=== PATIENT | female | born 1980 | race Hispanic/Latino ===

== ENCOUNTER 2017-12-15 17:27 | Emergency (ER) | payer OTHER ==
[~2017-12-15] VITALS: Ht 152.4 cm; Wt 70.3 kg
[~2017-12-15 17:27] MED LIST: FLEXERIL10 MG PO; MOTRIN800 MG PO
[2017-12-15 17:56] LABS: ABSOLUTE BASOPHIL COUNT 0 /CUMM (0.0-0.2); ABSOLUTE EOSINOPHIL COUNT 0.4 /CUMM (0.0-0.7); ABSOLUTE GRANULOCYTE CT 3.8 /CUMM (1.4-6.5); ABSOLUTE LYMPH COUNT 1.1 /CUMM (1.2-3.4); ABSOLUTE MONOCYTE COUNT 0.3 /CUMM (0.10-0.60); BASOPHIL % 0.4 % (0.0-2.0); EOSINOPHIL % 6.2 % (0-5); GRANULOCYTE % 67.4 % (42.2-75.2); HEMATOCRIT 40.5 % (37-47); MEAN CORPUSCULAR HGB 31.8 PG (27.0-31.0); MEAN CORPUSCULAR HGB CONC 33.9 G/DL (33.0-37.0); MEAN CORPUSCULAR VOLUME 93.8 FL (81.0-99.0); PLATELET COUNT 300 /CUMM (130-400); RBC DISTRIBUTION WIDTH 12.7 % (11.5-14.5); RED BLOOD CELL CT 4.32 /CUMM (4.20-5.40); WHITE BLOOD CELL COUNT 5.7 /CUMM (4.8-10.8)
--- NOTE | 2017-12-15 18:26 | ED CARDIAC/CP/PALPITATIONS ---
History of Present Illness General Chief Complaint: Chest Pain Stated Complaint: CP Source: patient Exam Limitations: no limitations Vital Signs & Intake/Output Vital Signs & Intake/Output Vital Signs Date Time Temp Pulse Resp B/P B/P Pulse O2 O2 Flow FiO2 Mean Ox Delivery Rate 12/159 98.2 70 18 127/68 100 Room Air 12/15 1905 98 Room Air 12/15 1851 98.2 70 18 146/83 100 Room Air 12/15 1740 98.3 73 18 150/93 99 Room Air Allergies Coded Allergies: NO KNOWN ALLERGIES (06/04/12) Triage Note: C/O LEFT SIDED CHEST PRESSURE TODAY (INTERMITTANT) DENIES SOB, DIZZINESS, WEATING OR WEAKNESS. Triage Nurses Notes Reviewed? yes Onset: Abrupt Duration: waxing and waning Timing: single episode today Quality/Severity: moderate, pressure Radiation: no radiation : No Patient currently breastfeeds: No HPI: Patient is a 37-year-old female with an unremarkable past medical history who presents emergency room today since 2 PM of a gradual onset of left-sided chest wall pressure and pain where she states the onset was during doing laundry at home. Patient states that the symptoms have been waxing and waning currently states symptoms have significantly improved, patient states that palpation makes worse. Denies any fever chills arm pain jaw pain diaphoresis nausea vomiting leg swelling hemoptysis. Patient does state that she had returned from [place] after a long flight approximate one week ago. (Tulio Cordon) Reconcile Medications No Known Home Medications (Elizabeth YOUNG,Neil) Past History Travel History Traveled to [place] No Medical History Any Pertinent Medical History? none Neurological: NONE EENT: NONE Cardiovascular: NONE Respiratory: NONE Gastrointestinal: NONE Hepatic: NONE Renal: NONE Musculoskeletal: NONE Psychiatric: NONE Endocrine: NONE Surgical History Surgical History: non-contributory, N Psychosocial History What is your primary language Chinese Tobacco Use: Never used ETOH Use: denies use Family History Hx Contributory? No (Tulio Cordon) Review of Systems Review of Systems Constitutional: Reports: no symptoms. EENTM: Reports: no symptoms. Respiratory: Reports: see HPI. Denies: cough, hemoptysis. Cardiovascular: Reports: see HPI, chest pain. GI: Reports: no symptoms. Genitourinary: Reports: no symptoms. Musculoskeletal: Reports: no symptoms. Skin: Reports: no symptoms. Neurological/Psychological: Reports: no symptoms. Hematologic/Endocrine: Reports: no symptoms. Immunologic/Allergic: Reports: no symptoms. All Other Systems: Reviewed and Negative (Tulio Cordon) Physical Exam Physical Exam General Appearance: no apparent distress, alert, comfortable Head: atraumatic Eyes: Bilateral: normal appearance. Ears, Nose, Throat: hearing grossly normal Neck: normal inspection Respiratory: normal breath sounds, no respiratory distress, RIGHT ANTERIOR CHEST WALL PAIN UPON PALPATION Cardiovascular: regular rate/rhythm Gastrointestinal: normal bowel sounds, soft, non-tender Back: normal inspection Extremities: normal inspection, normal capillary refill Skin: intact, normal color Core Measures ACS in differential dx? Yes CVA/TIA Diagnosis No Sepsis Present: No Sepsis Focused Exam Completed? No (Tulio Cordon) Progress Differential Diagnosis: AMI, aortic dissection, atrial fibrillation, cholecystitis, CHF/pulm edema, costochondritis, hyperkalemia, hypovolemia, hyperthyroid, hyperventilation, intracranial hemorrhage, musculoskeletal pain, myocarditis, pancreatitis, pericarditis, pneumonia, pneumothorax, PSVT, pulmonary embolism, PUD/GERD, PVCs/PACs, respiratory failure, sepsis, unstable angina, V-fib/V-Tach, WPW syndrome Plan of Care: Orders Procedure Date/time Status TROPONIN LEVEL 12/15 2100 Complete EKG 12/15 2100 Active Add-on Test (ER Only) 12/15 1829 Active D-DIMER 12/15 1829 Complete THYROID STIMULATING HORMONE 12/15 1743 Complete THYROXINE 12/15 1743 Complete TROPONIN LEVEL 12/15 1738 Complete HUMAN BETA HCG SCREEN 12/15 1738 Complete COMPREHENSIVE METABOLIC PANEL 12/15 1738 Complete CBC WITHOUT DIFFERENTIAL 12/15 1738 Complete EKG 12/15 1728 Active Laboratory Tests 12/15/17 2152: Troponin I < 0.01 12/15/17 1743: Anion Gap 10, Estimated GFR > 60, BUN/Creatinine Ratio 15.7, Glucose 120 H, Calcium 9.5, Total Bilirubin 0.4, AST 22, ALT 40, Alkaline Phosphatase 64, Troponin I < 0.01, Total Protein 6.9, Albumin 4.0, Globulin 2.9, Albumin/ Globulin Ratio 1.4, TSH 1.420, Thyroxine (T4) 9.0, Total Beta HCG NEGATIVE, D- Dimer High Sensitivty < 200, CBC w Diff NO MAN DIFF REQ, RBC 4.32, MCV 93.8, MCH 31.8 H, MCHC 33.9, RDW 12.7, MPV 7.0 L, Gran % 67.4, Lymphocytes % 19.9 L, Monocytes % 6.1, Eosinophils % 6.2 H, Basophils % 0.4, Absolute Granulocytes 3.8, Absolute Lymphocytes 1.1 L, Absolute Monocytes 0.3, Absolute Eosinophils 0.4, Absolute Basophils 0 Patient upon initial examination wrist resting complaining of bedside 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 CXR Impression: no acute abnormality, no infiltrates Initial ED EKG: normal p-waves, normal QRS complex, NSR 76 BPM Hand-Off Endorsed To: Neil Johnson MD Endorsed Time: 1999 Comments: PATIENT: ANGELIA LEE PRESENT AGE: 37 PATIENT ACCOUNT NO: [id number] : 78 LOCATION: ER ORDERING PHYSICIAN: Carlos LYON SERVICE DATE: 12/15/17 EXAM TYPE: RAD - XRY-CHEST XRAY, TWO VIEWS EXAMINATION: XR CHEST CLINICAL INFORMATION: Chest pain COMPARISON: None TECHNIQUE: 2 views of the chest were obtained. FINDINGS: No acute finding. No infiltrate. Lung stafford are grossly clear. The heart size is normal. Hilar structures do not appear enlarged. IMPRESSION: No acute process. DICTATED BY: Dorian Hayes MD DATE/TIME DICTATED:12/15/171801 SET DECORATOR:FELIPE (Tulio Cordon) Departure Departure Condition: Stable Clinical Impression Primary Impression: Chest pain Referrals: Patient Has No Primary Care Dr (PCP/Family) Cielo YOUNG PHD,Vadim Valencia Additional Instructions: As discussed begin [id number] Tylenol or Motrin for pain, follow-up with your primary care doctor tomorrow if no better, if symptoms worsen return to emergency room, follow-up tomorrow and establish cardiology Dr. Buck for further evaluation treatment Departure Forms: Customer Survey General Discharge Information (Tulio Cordon) Departure Time of Disposition: 2199 Disposition: HOME OR SELF CARE Prescriptions: Current Visit Scripts No Known Home Medications PA/HYDRAULIC HAMMER OPERATOR Co-Sign Statement Statement: ED Attending supervision documentation- x I saw and evaluated the patient. I have also reviewed all the pertinent lab results and diagnostic results. I agree with the findings and the plan of care as documented in the PA's/HYDRAULIC HAMMER OPERATOR's documentation. [] I have reviewed the ED Record and agree with the PA's/HYDRAULIC HAMMER OPERATOR's documentation. [] Additions or exceptions (if any) to the PAs/HYDRAULIC HAMMER OPERATOR's note and plan are summarized below: [] (Elizabeth YOUNG,Neil) Critical Care Note Critical Care Note Critical Care Time: non-applicable (Tulio Cordon)
[2017-12-15 21:09] VITALS: BP 127/68
== END 2017-12-15 22:55 ==
LOC: ERH 17:27
PROVIDERS: Physician Assistant Medical
DX: R07.89 Other chest pain (principal)
CPT/HCPCS: 71046; 93005; 93010